=== PATIENT | male | born 1995 | race African-American/Black ===

== ENCOUNTER → 2017-02-13 | Outpatient (CLI) | payer OTHER ==
--- NOTE | 2017-02-13 12:19 | Diagnostic Imaging Report ---
Ultrasound of the head and neck. INDICATION: Lump along the posterior aspect of the head inferiorly. FINDINGS: The palpable lump appears to be within the subcutaneous fat superficial to the muscular layer in the posterior aspect of the head and neck junction area. It is 1.7 x 2.2 x 0.7 cm in size and has circumscribed margins with central hyperechoic component in favor of a lymph node. IMPRESSION: The palpable lesion in the posterior aspect of the neck and head junction posteriorly is probably a reactive subcutaneous lymph node. Clinical follow-up is recommended. Repeat imaging is recommended if this continues to grow. Dictated by: Dictated on workstation # [id number]
== END ==
LOC: RAD 08:57
PROVIDERS: ATTEND Otolaryngology Otolaryngology/Facial Plastic Surgery
DX: R22.1 Localized swelling, mass and lump, neck (principal)
CPT/HCPCS: 76536

== ENCOUNTER 2017-05-30 05:35 | Outpatient (CLI) | payer OTHER ==
[~2017-05-30] VITALS: Ht 195.6 cm; Wt 99.8 kg
== END 2017-05-30 10:42 ==
LOC: PREOP 05:35
PROVIDERS: ATTEND Otolaryngology Otolaryngology/Facial Plastic Surgery
DX: Z01.818 Encounter for other preprocedural examination (principal); R22.1 Localized swelling, mass and lump, neck

== ENCOUNTER 2018-02-12 21:01 | Emergency (ER) | payer OTHER ==
[~2018-02-12] VITALS: Ht 193 cm; Wt 102.1 kg
[~2018-02-12 21:01] MED LIST: HYDR-3062 PO
--- NOTE | 2018-02-12 21:20 | ED Head Injury ---
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 There is no nausea, hematoma or headache. He did not take anything for afterwards. He says immediately after it happened some yellow clear liquid came out of both of his nostrils. He told his mother about it later and she was concerned might be cerebral spinal fluid and insisted he come to the ER to be checked out. He's having no double vision headache pain weakness or disability of gait or balance. Allergies and Home Medications Allergies Coded Allergies: No Known Drug Allergies (Unverified , 05/30/17) Home Medications Hydrocodone/Acetaminophen 1 Each Tablet, 1-2 EACH PO Q4H PRN for PAIN-MODERATE Prescribed by: JULIO VELASQUEZ on 06/08/17 1054 Patient Home Medication List Home Medication List Reviewed: Yes Review of Systems Review of Systems Constitutional: No chills, No diaphoresis Eyes: Denies Blindness, Denies Blurred Vision, Denies Drainage Ears, Nose, Mouth, Throat: denies ear pain, denies ear discharge, denies nose pain; nose discharge; denies mouth pain Respiratory: No cough, No short of breath Cardiovascular: No chest pain, No palpitations Gastrointestinal: No abdominal pain, No constipation, No diarrhea, No nausea Genitourinary: No discharge, No dysuria Musculoskeletal: No back pain, No joint pain Skin: No pruritus, No rash Past [place]-Yeljzn-Qepsju Hx Patient Social History Alcohol Use: Denies Use Recreational Drug Use: No Smoking Status: Never a Smoker Recent Foreign Travel: No Contact w/Someone Who Travel: No Recent Hopitalizations: No Seasonal Allergies Seasonal Allergies: No Past Medical History Reproductive Disorders: No Sexually Transmitted Disease: No HIV/AIDS: No Loss of Vision: Bilateral Hearing Impairment: Denies Adverse Reaction/Blood Tranf: No (N/A) Physical Exam Vital Signs Capillary Refill : Height, Weight, BMI Height: 6'5.00" Weight: 220lbs. 0.0oz. 99.247559gs; 26.1 BMI Method: General Appearance: WD/WN, no apparent distress HEENT: PERRL/EOMI, normal ENT inspection, TMs normal, pharynx normal, other ( negative for discharge from the nose. Atraumatic head without Head sign or raccoon eyes.) Neck: non-tender, full range of motion, supple, normal inspection Cardiovascular: normal peripheral pulses, regular rate, rhythm Respiratory: no respiratory distress, no accessory muscle use Psychiatric: alert, oriented x 3 Crainal Nerves: normal hearing, normal speech, PERRL Coordination/Gait: normal gait Motor/Sensory: no motor deficit, no sensory deficit Tricia Coma Score Best Eye Response: (4) Open Spontaneously Best Verbal Response: (5) Oriented Best Motor Response: (6) Obeys Commands [place] Total: 15 Progress/Results/Core Measures Progress Progress Note : Time: 21:19 Progress Note Unable to actually obtain any kind of fluid from his nose. His history is not really consistent with a trauma that would be likely to cause a basal skull fracture. There certainly no depressed skull fracture on the top of his head either. He is neurologically intact. We have encouraged him to pursue the next 8 hours of a 12 hour observation. Further neurologic changes and will provide him with handouts. He is okay with this plan. Departure Impression Primary Impression: Minor head injury without loss of consciousness Qualified Codes: S09.90XA - Unspecified injury of head, initial encounter Disposition: 01 HOME, SELF-CARE Condition: Stable Departure-Patient Inst. Decision time for Depature: 21:20 Referrals: [facility] (PCP/Family) Primary Care Physician Patient Instructions: Minor Head Injury (DC) Add. Discharge Instructions: It's okay to go home and sleep. Use Tylenol or Motrin if he started to get a headache. Observe for any signs of neurologic changes such as weakness, difficulty walking, double vision, severest headache of your lifetime, nausea vomiting or other worrisome symptoms and if this happens in the first 12 hours you should return to the ER for reevaluation. Otherwise you may follow-up with your sports medicine, primary care doctor or student health at [facility]. Copy Copies To 1: LUNA GARRIDO MD, TITUS J Feb 12, 2018 21:20
[2018-02-12 21:29] VITALS: BP 126/84
== END 2018-02-12 21:29 | disposition home or self-care (01) ==
LOC: EDUNIT# 21:01 → ER 21:02
DX: S09.90XA Unspecified injury of head, initial encounter (principal); R40.2142 Coma scale, eyes open, spontaneous, at arrival to emergency department; R40.2252 Coma scale, best verbal response, oriented, at arrival to emergency department; R40.2362 Coma scale, best motor response, obeys commands, at arrival to emergency department; W03.XXXA Other fall on same level due to collision with another person, initial encounter; Y93.67 Activity, basketball
CPT/HCPCS: 99282

== ENCOUNTER 2018-11-22 03:44 | Emergency (ER) | payer OTHER ==
[~2018-11-22] VITALS: Ht 193 cm; Wt 102.0 kg
[2018-11-22] MEDS ORDERED: ONDANSETRON 4 MG/2 ML (SDV) Z0FRAN IVP ONE (04:00)
[2018-11-22] MEDS ORDERED: LACTATED RINGERS 1,000 ML IV ONE (04:00)
[2018-11-22 04:04] LABS: BASOPHILS % (AUTO) 1 % (0-10); EOSINOPHILS # (AUTO) 0.1 10^3/uL (0.0-0.3); EOSINOPHILS % (AUTO) 2 % (0-10); HEMATOCRIT 42 % (40-54); HEMOGLOBIN 14.4 G/DL (13.3-17.7); LYMPHOCYTES % (AUTO) 46 % (12-44); MEAN CORPUSCULAR HEMOGLOBIN 32 PG (25-34); MEAN CORPUSCULAR HGB CONC 34 G/DL (32-36); MEAN CORPUSCULAR VOLUME 93 FL (80-99); MEAN PLATELET VOLUME 9.8 FL (7.4-10.4); MONOCYTES # (AUTO) 0.4 X 10^3 (0.0-1.0); MONOCYTES % (AUTO) 7 % (0-12); NEUTROPHILS # (AUTO) 2.9 X 10^3 (1.8-7.8); NEUTROPHILS % (AUTO) 45 % (42-75); PLATELET COUNT 193 10^3/uL (130-400); RED CELL DISTRIBUTION WIDTH 12.5 % (10.0-14.5); WHITE BLOOD COUNT 6.5 10^3/uL (4.3-11.0)
[2018-11-22 04:25] LABS: ALANINE AMINOTRANSFERASE 15 U/L (0-55); ALBUMIN 4.4 GM/DL (3.2-4.5); ALKALINE PHOSPHATASE 104 U/L (40-136); AMYLASE 88 U/L (25-125); BILIRUBIN,TOTAL 0.3 MG/DL (0.1-1.0); BUN/CREATININE RATIO 21; CALCIUM 9.6 MG/DL (8.5-10.1); CARBON DIOXIDE 24 MMOL/L (21-32); CHLORIDE 106 MMOL/L (98-107); CREATININE SERUM 1.17 MG/DL (0.60-1.30); GFR ESTIMATED > 60; GLUCOSE 146 MG/DL (70-105); MAGNESIUM 2.1 MG/DL (1.6-2.4); POTASSIUM 4.2 MMOL/L (3.6-5.0); SODIUM 141 MMOL/L (135-145); TOTAL PROTEIN 7.1 GM/DL (6.4-8.2)
[2018-11-22 04:35] LABS: BILIRUBIN,URINE NEGATIVE (NEGATIVE); CLARITY,URINE CLEAR; GLUCOSE, URINE (UA) NEGATIVE (NEGATIVE); KETONES,URINE NEGATIVE (NEGATIVE); LEUKOCYTE ESTERASE ,URINE NEGATIVE (NEGATIVE); NITRITE,URINE NEGATIVE (NEGATIVE); PH,URINE 5 (5-9); PROTEIN,URINE 1+ (NEGATIVE); UROBILINOGEN,URINE NORMAL (NORMAL)
[2018-11-22 04:44] LABS: BACTERIA,URINE TRACE /HPF; COLOR,URINE DARK YELLOW; HYALINE CASTS, URINE RARE /LPF; SQUAMOUS EPITHELIAL CELL,UR RARE /HPF; WBC,URINE RARE /HPF
[2018-11-22 04:47] LABS: AMPHETAMINE SCREEN, URINE NEGATIVE (NEGATIVE); BARBITURATE SCREEN URINE NEGATIVE (NEGATIVE); BENZODIAZEPINES SCREEN URINE NEGATIVE (NEGATIVE); CANNABINOID SCREEN, URINE NEGATIVE (NEGATIVE); COCAINE SCREEN URINE NEGATIVE (NEGATIVE); METHADONE STAT NEGATIVE (NEGATIVE); METHAMPHETAMINE SCREEN URINE S NEGATIVE (NEGATIVE); OPIATE SCREEN URINE NEGATIVE (NEGATIVE); OXYCODONE STAT NEGATIVE (NEGATIVE); PROPOXYPHENE STAT NEGATIVE (NEGATIVE); TRICYCLIC ANTIDEPRESSANTS SCRE NEGATIVE (NEGATIVE)
--- NOTE | 2018-11-22 05:35 | ED Abdominal Pain ---
General Chief Complaint: Abdominal/GI Problems Stated Complaint: ABD PAIN & NAUSEA Nursing Triage Note: C/O ABDOMINAL PAIN. TOOK TUMS AND PEPTO AT HOME, BECAME LIGHT HEADED WITH COLD SWEAT. Sepsis Screen: No Definite Risk Source of Information: Patient History of Present Illness Date Seen by Provider: Nov 22, 2018 Time Seen by Provider: 03:55 Initial Comments PT ARRIVES VIA POV STATES HE WOKE UP AN HOUR AGO WITH STOMACH PAIN--MID ABDOMEN PAIN COMES AND GOES, IS WORSE WITH WALKING AND LAYING FLAT, IS BETTER WITH SITTING--NO SIGNIFICANT PAIN AT THIS TIME + NAUSEA, NO VOMITING STATES HE FEELS LIKE HE NEEDS TO HAVE A BM, BUT COULD NOT. HAD A BM YESTERDAY TOOK 2 TUMS WITHOUT RELIEF DROVE TO [place] AND GOT A SPRITE, THEN TO A GAS STATION TO GET PEPTO BISMOL, THEN THE PAIN HIT AGAIN AND HE BROKE OUT INTO "COLD SWEATS" AND "FELT LIKE HE WAS GOING TO PASS OUT" STATES HE HAS BEEN FINE ALL DAY NO FEVER NO PROBLEMS URINATING FOR DINNER HE HAD, PROTEIN SHAKE, PEANUT BUTTER AND FROSTED FLAKES CEREAL NO SICK CONTACTS OR SUSPICIOUS FOODS NO HISTORY OF GI PROBLEMS PT PLAYS BASKETBALL AT [facility] [employer] FROM [place], [place] Allergies and Home Medications Allergies Coded Allergies: No Known Drug Allergies (Unverified , 11/22/18) Home Medications Hydrocodone/Acetaminophen 1 Each Tablet, 1-2 EACH PO Q4H PRN for PAIN-MODERATE Prescribed by: JULIO VELASQUEZ on 06/08/17 1054 Hyoscyamine Sulfate 0.125 Mg Tab.subl, 1-2 TAB SL Q4H Prescribed by: ROJELIO ZHANG on 11/22/18 0548 Ondansetron 4 Mg Tab.rapdis, 4 MG PO Q4H Prescribed by: ROJELIO ZHANG on 11/22/18 0548 Patient Home Medication List Home Medication List Reviewed: Yes Review of Systems Review of Systems Constitutional: see HPI, diaphoresis EENTM: No Symptoms Reported Respiratory: No Symptoms Reported Cardiovascular: No Symptoms Reported Gastrointestinal: See HPI, Abdominal Pain, Constipated, Nausea; Denies Vomiting Genitourinary: No Symptoms Reported Musculoskeletal: no symptoms reported Skin: no symptoms reported Psychiatric/Neurological: No Symptoms Reported Endocrine: No Symptoms Reported Hematologic/Lymphatic: No Symptoms Reported Past Phfolsz-Xbllzg-Cwfprr Hx Patient Social History Alcohol Use: Denies Use Recreational Drug Use: No Smoking Status: Never a Smoker Recent Foreign Travel: No Contact w/Someone Who Travel: No Recent Infectious Disease Expo: No Recent Hopitalizations: No Physical Abuse: No Sexual Abuse: No Mistreated: No Fear: No Seasonal Allergies Seasonal Allergies: No Past Medical History Surgeries: Yes (KNEE SCOPE, lymph node removal posterior rt neck) Orthopedic, Tonsillectomy Respiratory: No Cardiac: No Neurological: No Reproductive Disorders: No Sexually Transmitted Disease: No HIV/AIDS: No Genitourinary: No Gastrointestinal: No Musculoskeletal: Yes (KNEE SCOPE) Endocrine: No HEENT: No Loss of Vision: Bilateral Hearing Impairment: Denies Cancer: No Psychosocial: No Integumentary: No Blood Disorders: No Adverse Reaction/Blood Tranf: No (N/A) Physical Exam Vital Signs Vital Signs - First Documented 11/22/18 03:45 Temp 34.7 Pulse 40 Resp 16 B/P (MAP) 128/83 (98) Pulse Ox 100 Capillary Refill : Less Than 3 Seconds Height/Weight/BMI Height: 6'4.00" Weight: 225lbs. 0.0oz. 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, no motor/sensory deficits, alert, normal mood/affect, oriented x 3 Skin: normal color, warm/dry Progress/Results/Core Measures Results/Orders Lab Results Laboratory Tests Test 11/22/18 03:51 11/22/18 04:30 Range/Units White Blood Count 6.5 4.3-11.0 10^3/uL Red Blood Count 4.57 4.35-5.85 10^6/uL Hemoglobin 14.4 13.3-17.7 G/DL Hematocrit 42 40-54 % Mean Corpuscular Volume 93 80-99 FL Mean Corpuscular Hemoglobin 32 25-34 PG Mean Corpuscular Hemoglobin Concent 34 32-36 G/DL Red Cell Distribution Width 12.5 10.0-14.5 % Platelet Count 193 130-400 10^3/uL Mean Platelet Volume 9.8 7.4-10.4 FL Neutrophils (%) (Auto) 45 42-75 % Lymphocytes (%) (Auto) 46 H 12-44 % Monocytes (%) (Auto) 7 0-12 % Eosinophils (%) (Auto) 2 0-10 % Basophils (%) (Auto) 1 0-10 % Neutrophils # (Auto) 2.9 1.8-7.8 X 10^3 Lymphocytes # (Auto) 3.0 1.0-4.0 X 10^3 Monocytes # (Auto) 0.4 0.0-1.0 X 10^3 Eosinophils # (Auto) 0.1 0.0-0.3 10^3/uL Basophils # (Auto) 0.0 0.0-0.1 10^3/uL Sodium Level 141 135-145 MMOL/L Potassium Level 4.2 3.6-5.0 MMOL/L Chloride Level 106 98-107 MMOL/L Carbon Dioxide Level 24 21-32 MMOL/L Anion Gap 11 5-14 MMOL/L Blood Urea Nitrogen 25 H 7-18 MG/DL Creatinine 1.17 0.60-1.30 MG/DL Estimat Glomerular Filtration Rate > 60 BUN/Creatinine Ratio 21 Glucose Level 146 H 70-105 MG/DL Calcium Level 9.6 8.5-10.1 MG/DL Corrected Calcium 9.3 8.5-10.1 MG/DL Magnesium Level 2.1 1.6-2.4 MG/DL Total Bilirubin 0.3 0.1-1.0 MG/DL Aspartate Amino Transf (AST/SGOT) 25 5-34 U/L Alanine Aminotransferase (ALT/SGPT) 15 0-55 U/L Alkaline Phosphatase 104 40-136 U/L Total Protein 7.1 6.4-8.2 GM/DL Albumin 4.4 3.2-4.5 GM/DL Amylase Level 88 25-125 U/L Serum Alcohol < 10 <10 MG/DL Urine Color DARK YELLOW Urine Clarity CLEAR Urine pH 5 5-9 Urine Specific [place] 1.030 H 1.016-1.022 Urine Protein 1+ H NEGATIVE Urine Glucose (UA) NEGATIVE NEGATIVE Urine Ketones NEGATIVE NEGATIVE Urine Nitrite NEGATIVE NEGATIVE Urine Bilirubin NEGATIVE NEGATIVE Urine Urobilinogen NORMAL NORMAL MG/DL Urine Leukocyte Esterase NEGATIVE NEGATIVE Urine RBC (Auto) NEGATIVE NEGATIVE Urine RBC NONE /HPF Urine WBC RARE /HPF Urine Squamous Epithelial Cells RARE /HPF Urine Crystals NONE /LPF Urine Bacteria TRACE /HPF Urine Casts PRESENT /LPF Urine Hyaline Casts RARE /LPF Urine Mucus MODERATE H /LPF Urine Culture Indicated NO Urine Opiates Screen NEGATIVE NEGATIVE Urine Oxycodone Screen NEGATIVE NEGATIVE Urine Methadone Screen NEGATIVE NEGATIVE Urine Propoxyphene Screen NEGATIVE NEGATIVE Urine Barbiturates Screen NEGATIVE NEGATIVE Ur Tricyclic Antidepressants Screen NEGATIVE NEGATIVE Urine Phencyclidine Screen NEGATIVE NEGATIVE Urine Amphetamines Screen NEGATIVE NEGATIVE Urine Methamphetamines Screen NEGATIVE NEGATIVE Urine Benzodiazepines Screen NEGATIVE NEGATIVE Urine Cocaine Screen NEGATIVE NEGATIVE Urine Cannabinoids Screen NEGATIVE NEGATIVE My Orders Orders - ROJELIO ZHANG DO Ed Iv/Invasive Line Start (11/22/18 04:00) Monitor-Rhythm Ecg Trace Only (11/22/18 04:00) Alcohol (11/22/18 04:00) Amylase (11/22/18 04:00) Cbc With Automated Diff (11/22/18 04:00) Comprehensive Metabolic Panel (11/22/18 04:00) Drug Screen Stat (Urine) (11/22/18 04:00) Magnesium (11/22/18 04:00) Ua Culture If Indicated (11/22/18 04:00) Ondansetron Injection (Zofran Injectio (11/22/18 04:00) Ed Iv/Invasive Line Start (11/22/18 04:00) Lactated Ringers (Lr 1000 Ml Iv Solution (11/22/18 04:00) Ct Abd/Pelv W (Appendicitis) (11/22/18 04:31) Acute Abd Series (11/22/18 04:31) Ketorolac Injection (Toradol Injection) (11/22/18 05:45) Hyoscyamine Sl Tablet (Levsin Sl Tablet) (11/22/18 05:45) Medications Given in ED Current Medications Medications Dose Ordered Sig/Carmelita Route Start Time Stop Time Status Last Admin Dose Admin Hyoscyamine Sulfate 0.25 mg ONCE ONCE PO 11/22/18 05:45 11/22/18 05:46 DC 11/22/18 05:54 0.25 MG Ketorolac Tromethamine 30 mg ONCE ONCE IVP 11/22/18 05:45 11/22/18 05:46 DC 11/22/18 05:54 30 MG Lactated Ringer's 1,000 ml @ 0 mls/hr Q0M ONCE IV 11/22/18 04:00 11/22/18 04:01 DC 11/22/18 04:12 1,000 MLS/HR Ondansetron HCl 4 mg ONCE ONCE IVP 11/22/18 04:00 11/22/18 04:01 DC 11/22/18 04:12 4 MG Vital Signs/I&O 11/22/18 03:45 Temp 34.7 Pulse 40 Resp 16 B/P (MAP) 128/83 (98) Pulse Ox 100 Blood Pressure Mean: 98 Progress Progress Note : Progress Note UNEVENTFUL ER STAY NAUSEA RESOLVED WITH ZOFRAN HAD MILD PAIN AND WAS GIVEN TORADOL AND LEVSIN, WITH RESOLUTION OF DISCOMFORT HEART RATE IN 50'S AT DISMISSAL--PT IS AN ATHLETE Initial ECG Impression Date: Nov 22, 2018 Initial ECG Impression Time: 03:59 Initial ECG Rate: 36 Initial ECG Rhythm: Normal Sinus Initial ECG Impression: 1st Degree AV Block (IVCD) Diagnostic Imaging Comments ABDOMEN XRAYS--LARGE AMOUNT OF STOOL IN COLON, NO ACUTE PROCESS, PENDING RADIOLOGIST REVIEW CT ABDOMEN/PELVIS--DIFFUSELY FLUID-FILLED HYPEREMIC SMALL BOWEL, POSSIBLE GASTROENTERITIS. COPIOUS AMOUNTS OF STOOL IN COLON, WITH MODERATE STOOL IMPACTION AT RECTOSIGMOID JUNCTION--PER [facility] VIA FAX AT [id number] Reviewed: Reviewed by Me Departure Impression Primary Impression: Gastroenteritis Additional Impressions: Constipation Fecal impaction in rectum Dehydration Disposition: 01 HOME, SELF-CARE Condition: Improved Departure-Patient Inst. Referrals: [facility] (PCP/Family) Primary Care Physician Patient Instructions: Constipation, Adult (DC), Fecal Impaction (DC), [id number], Dehydration, Adult (DC) Add. Discharge Instructions: CLEAR LIQUIDS--WATER, BROTH, JELLO, GATORADE--DRINK ENOUGH LIQUIDS SO YOU ARE URINATING EVERY 2 HOURS WHILE AWAKE NO FOOD UNTIL YOUR STOOLS ARE CLEAR, THEN START A BRATS DIET--BANANAS, RICE, APPLESAUCE, TOAST, SALTINES USE DULCOLAX SUPPOSITORIES FOR BOWEL MOVEMENT YOU MAY ALSO USE FLEET'S ENEMAS IF NEEDED FOR BOWEL MOVEMENT TAKE MIRALAX-1 CAPFUL IN 8 OZ OF WATER--EVERY 1-2 HOURS UNTIL YOUR STOOLS ARE CLEAR FOLLOW UP WITH [facility] TOMOR[facility] IF NO BETTER, RETURN TO ER IF WORSE All discharge instructions reviewed with patient and/or family. Voiced u nderstanding. Scripts Hyoscyamine Sulfate (Levsin-Sl) 0.125 Mg Tab.subl 1-2 TAB SL Q4H for Abdominal Pain, #10 TAB Prov: ROJELIO ZHANG DO 11/22/18 Ondansetron (Ondansetron Odt) 4 Mg Tab.rapdis 4 MG PO Q4H for Nausea/Vomiting, #10 TAB Prov: ROJELIO ZHANG DO 11/22/18 ROJELIO ZHANG DO Nov 22, 2018 05:35
[2018-11-22] MEDS ORDERED: KETOROLAC 30 MG/ML VIAL IVP ONE (05:45)
[2018-11-22] MEDS ORDERED: HYOSCYAMINE 0.125 MG (LEVSIN) TAB PO ONE (05:45)
[2018-11-22] MEDS ORDERED: ONDA4TAB11 PO (05:48)
[2018-11-22] MEDS ORDERED: HYOS0.1283 SL (05:48)
--- NOTE | 2018-11-22 06:28 | Diagnostic Imaging Report ---
EXAMINATION: Acute abdomen series at 4:52 AM INDICATION: Abdominal pain There are no prior studies available for comparison. The accompanying erect PA chest shows the heart size to be within normal limits. The lungs are clear. There is no sign of pneumoperitoneum. Supine and erect views of the abdomen were obtained. There is gas in both the large and small bowel in a nonspecific fashion. There is no evidence for bowel obstruction. There is a prominent air-fluid level within the stomach and there is a vague area of increased density overlying the left mid abdomen on the erect film. This could be related to ingested medication within the stomach. There is no mass or organomegaly appreciated. The osseous structures are intact. There is a fair amount of fecal material throughout the colon. IMPRESSION: 1. The bowel gas pattern is nonspecific. There is no acute abnormality identified. 2. Reportedly, CT of the abdomen and pelvis is pending for further study. Dictated by: Dictated on workstation # [id number]
[2018-11-22 06:41] VITALS: BP 96/80
--- NOTE | 2018-11-22 08:04 | Diagnostic Imaging Report ---
PROCEDURE: CT abdomen and pelvis with contrast, rule out appendicitis. TECHNIQUE: Multiple contiguous axial images were obtained through the abdomen and pelvis after the administration of intravenous contrast. INDICATION: Abdominal pain There are no prior CT examinations available for comparison. The acute abdomen series performed prior to the study failed to show any evidence for an acute abnormality. On this exam, the appendix was visualized and is not abnormally thickened. There is no pelvic mass or free fluid collection noted. The urinary bladder and prostate gland are grossly unremarkable. There is a fair amount of fecal material throughout the colon. There is fluid in several segments of small bowel. This appearance is nonspecific but could be related to a mild ileus perhaps related to enteritis. The liver, spleen, pancreas, adrenals, gallbladder, kidneys, aorta and inferior vena cava show no sign of an acute abnormality. The stomach is partially filled with fluid and difficult to assess. There is no obvious gastric abnormality evident. There does appear to be radiopaque material within the dependent portion of the stomach. This is probably related to ingested medication. The lung bases are clear. The bone windows show no sign of a fracture or of a destructive lesion. IMPRESSION: 1. There is no evidence for acute appendicitis or for obstruction of either collecting system by a calculus. 2. The fluid in the small bowel is nonspecific. The possibility that this finding is related to a mild ileus secondary to enteritis should be considered. Clinical followup is recommended. Dictated by: Dictated on workstation # [id number]
== END 2018-11-22 06:40 | disposition home or self-care (01) ==
LOC: EDUNIT# 03:44 → ER 03:46
DX: K52.9 Noninfective gastroenteritis and colitis, unspecified (principal); K59.00 Constipation, unspecified; E86.0 Dehydration; Z90.89 Acquired absence of other organs
CPT/HCPCS: 36415; 74022; 74177; 80053; 80306; 80320; 81000; 82150; 83735; 85025; 93005; 93041